=== PATIENT | female | born 1945 | race Caucasian/White ===

== ENCOUNTER 2018-06-10 17:59 | Inpatient (IN) | payer OTHER ==
[~2018-06-10] VITALS: Ht 152.4 cm; Wt 63.0 kg
[2018-06-10 18:08] VITALS: BP 131/69
--- NOTE | 2018-06-10 18:26 | NUR ---
Patient ambulated to bed 3. RN evaluating patient at bedside.
[2018-06-10] MEDS ORDERED: ACETAMINOPHEN EXTRA STRENGTH 500 MG TAB PO ONE (18:30)
--- NOTE | 2018-06-10 18:30 | NUR ---
PT IS A 73 Y/O FEMALE WHO PRESENTS TO THE ED C/O FEVER. PER DAUGHTER PT HAS BEEN REPORTING SYMPTOMS X1 WEEK. PT REPORTS 8/10 ACHING EPIGASTRIC PAIN AND HEADACHE THAT DOES NOT RADIATE. PT ALSO REPORTS FEVER, GEN WEAKNESS. PT DENIES CP, SOB, REPORTS N/V/D. PT AWAKE AND ALERT, RR EVEN/UNLABORED. PT REPOSITIONED FOR COMFORT, BED IN LOWEST POSITION. ER PROVIDER NOTIFIED. WILL CONTINUE TO MONITOR. MED HX: DM, HTN, HIGH CHOLESTEROL MED:GLUCOPHAGE,GLIPIZIDE,PRVASTATIN, LOSARTAN,LANTUS
[2018-06-10 19:45] LABS: BASOPHILS % (AUTO) 0.1 % (0.0-2.0); EOSINOPHILS % (AUTO) 0.1 % (0.0-4.0); HEMATOCRIT 33.7 % (36-48); HEMOGLOBIN 11.3 g/dL (12.0-16.0); LYMPHOCYTES # (AUTO) 0.5 K/uL (2.5-16.5); LYMPHOCYTES % (AUTO) 3.6 % (20.5-51.1); MEAN CORPUSCULAR HEMOGLOBIN 31 pg (27-31); MEAN CORPUSCULAR HGB CONC 33 g/dL (33-37); MEAN CORPUSCULAR VOLUME 91.8 fL (80-94); MONOCYTES # (AUTO) 1.1 K/uL (0.8-1.0); MONOCYTES % (AUTO) 7.2 % (1.7-9.3); NEUTROPHILS # (AUTO) 13.2 K/uL (1.8-7.7); PLATELET COUNT (AUTO) 201 K/uL (140-450); RED BLOOD CELL COUNT(AUTO) 3.67 MIL/uL (4.20-5.40); RED CELL DISTRIBUTION WIDTH 12.9 % (11.6-13.7); WHITE BLOOD COUNT (AUTO) 14.8 K/uL (4.8-10.8)
[2018-06-10 19:55] LABS: ANION GAP 17.1 (8-16); CARBON DIOXIDE 18.4 mmol/L (21-32); CHLORIDE 102 mmol/L (98-107); GLUCOSE 296 mg/dL (74-106); POTASSIUM 4.5 mmol/L (3.5-5.1); SODIUM SERUM 133 mmol/L (136-145); UREA NITROGEN, BLOOD 32 mg/dL (7-18)
[2018-06-10 19:55] LABS: APPEARANCE,URINE HAZY (CLEAR); BILIRUBIN,URINE NEGATIVE (NEGATIVE); BLOOD, URINE 2+ (NEGATIVE); COLOR,URINE YELLOW (YELLOW); LEUKOCYTE ESTERASE ,URINE 1+ (NEGATIVE); NITRITE, URINE NEGATIVE (NEGATIVE); UGLUCOSE 1+ (NEGATIVE)
[2018-06-10 20:01] LABS: ALBUMIN 2.7 g/dL (3.4-5.0); ASPARTATE AMINOTRANSFERASE 18 U/L (15-37); TOTAL BILIRUBIN 0.3 mg/dL (0.0-1.0)
[2018-06-10 20:03] LABS: RBC,URINE 11-20 (MOD) /HPF (0-5); WBC,URINE >25 (MANY) /HPF (0-5)
[2018-06-10] MEDS ORDERED: NACL 0.9% 2,000 ML IV ONE (20:10)
[2018-06-10] MEDS ORDERED: cefTRIAXone 1,000 MG VIAL ONE (20:21)
--- NOTE | 2018-06-10 20:36 | NUR ---
MEDICATED ORDERED. NO ADVERSE REACTIONS AT THIS TIME.
[2018-06-10] MEDS ORDERED: GLIP10TA3 PO (20:39)
[2018-06-10] MEDS ORDERED: PRAV40TA1 PO (20:39)
[2018-06-10] MEDS ORDERED: LANTUS SUBQ (20:39)
[2018-06-10] MEDS ORDERED: LOSA50TA66 PO (20:39)
[2018-06-10] MEDS ORDERED: METF500T PO (20:39)
[2018-06-10] MEDS ORDERED: HYDROcodone/APAP 5/325 MG 1 TAB TAB PO PRN (20:40)
[2018-06-10] MEDS ORDERED: ONDANSETRON 4 MG/2 ML VIAL IM/IVP PRN (20:40)
[2018-06-10] MEDS ORDERED: DEXTROSE 50% 50 ML SYR IVP PRN (20:40)
[2018-06-10] MEDS ORDERED: DOCUSATE SODIUM 100 MG GELCAP PO PRN (20:40)
[2018-06-10] MEDS ORDERED: ACETAMINOPHEN 325 MG TAB PO PRN (20:40)
[2018-06-10] MEDS ORDERED: MORPHINE SULFATE 2 MG/ML SYR IVP PRN (20:40)
[2018-06-10] MEDS ORDERED: LORazepam 2 MG/ML VIAL IM/IVP PRN (20:40)
[2018-06-10] MEDS: ATORVASTATIN 20 MG TAB PO SCH (21:00)
--- NOTE | 2018-06-10 21:15 | NUR ---
RECEIVED PT FROM ER VIA [facility]. PT AWAKE, ALERT O X 4. PT AMBULATORY, AND ABLE TO TRANSFER TO BED W/ STANDBY ASSIST. PT GAIT STEADY. W/ IV ON THE RIGHT WRIST/HAND G 22 NS BOLUS ONGOING. DAUGHTER ACCOMPANYING PT. PLACED ON LOW BED, WITH BED ALARM.
--- NOTE | 2018-06-10 21:20 | NUR ---
Patient will be admitted to care of DR COSTA. Admited to 121-A. Will go to room TELE. Belongings list completed. Report to VASILIY ONEIL.
[2018-06-10 21:42] LABS: PROTHROMBIN TIME 9.8 secs (10.8-13.4)
[2018-06-10 21:50] LABS: CHOL/HDL RATIO 4.6 (1-4.5); MAGNESIUM 1.9 mg/dL (1.8-2.4); PHOSPHORUS 2.5 mg/dL (2.5-4.9); THYROID STIMULATING HORMONE 0.44 uIU/mL (0.34-3.74)
[2018-06-10] MEDS ORDERED: TAMSULOSIN 0.4 MG CAP PO SCH (22:00)
[2018-06-10] MEDS ORDERED: glipiZIDE 10 MG TAB PO SCH (22:00)
[2018-06-10] MEDS ORDERED: metFORMIN 500 MG TAB PO SCH (22:00)
--- NOTE | 2018-06-10 22:20 | NUR ---
DAUGHTER AT BEDSIDE ACTING TALENT ACQUISITION DIRECTOR FOR PT, ANSWERED QUESTIONS FOR H AND P, PTDOES WANT TO REST FOR NOW SHE SAID AND WOULD LIKE TO SLEEP 1ST.EXPLAINED TO PT AND DAUGHTER RISK AND BENEFITS MEDS STILL PENDING TO BE GIVEN TO PATIENT
[2018-06-11] VITALS: BP 119/60
[2018-06-11] MEDS: BLOOD GLUCOSE MONITORING 1 DEV DEV FS SCH ×5 (01:26→20:19)
[2018-06-11] MEDS: NACL 0.9% 1,000 ML IV SCH ×6 (01:27→21:37)
--- NOTE | 2018-06-11 01:30 | NUR ---
MEDICATED PATIENT WITH MEDS ORDERED
[2018-06-11] MEDS: INSULIN LANTUS 100 UNITS/ML 10 ML VIAL SUBQ SCH ×2 (01:31→20:33)
[2018-06-11] MEDS: INSULIN LISPRO SLIDING SCALE 100 UNITS/ML VIAL SUBQ PRN ×4 (01:38→20:36)
--- NOTE | 2018-06-11 01:39 | NUR ---
FINISHED IV BOLUS ON THE FROM ER JUST STARTED THE IVF AT 70ML/HR ORDERED
--- NOTE | 2018-06-11 01:39 | NUR ---
WILL LOOK FOR ATORVASTATIN MED OTHER PYXIS UNAVAILABLE AT TELE
[2018-06-11] MEDS: ATORVASTATIN 20 MG TAB PO SCH ×2 (01:53→20:31)
[2018-06-11 04:00] VITALS: BP 119/65
[2018-06-11] MEDS: glipiZIDE 10 MG TAB PO SCH ×2 (06:32→17:05)
--- NOTE | 2018-06-11 07:15 | NUR ---
ENDORSED FOR CONTINUITY OF CARE. PT IN STABLE CONDITION AT THIS TIME.
--- NOTE | 2018-06-11 07:17 | NUR ---
RECEIVED BEDSIDE REPORT FROM MICROSYSTEMS ENGINEER RN. PT SLEEPING IN BED, AROUSABLE BY VOICE. AOX4. DENIES PAIN AND DISCOMFORT. LUNGS CTA. ABD SOFT, LOWER ABD SLIGHTLY TENDER TO PALPATION. PT IS VOIDING ADEQUATELY. PER MICROSYSTEMS ENGINEER RN, PT IS AMBULATORY W/ STANDBY ASSIST. IV SITE PATENT AND ASYMPTOMATIC, INFUSING IVF PER MD ORDERS. ALL SAFETY PRECAUTIONS IN PLACE, WILL CONTINUE TO MONITOR.
[2018-06-11 08:00] VITALS: BP 106/55
[2018-06-11] MEDS ORDERED: metFORMIN 500 MG TAB PO SCH (08:00)
[2018-06-11] MEDS: metFORMIN 850 MG TAB PO SCH ×2 (08:28→17:05)
[2018-06-11] MEDS: TAMSULOSIN 0.4 MG CAP PO SCH (08:28)
[2018-06-11] MEDS ORDERED: SODIUM FERRIC GLUCONATE 125 MG in NACL 0.9% 100 ML IV SCH (09:00)
[2018-06-11 09:18] LABS: HEMATOCRIT 36.7 % (36-48); MEAN CORPUSCULAR HEMOGLOBIN 31 pg (27-31); MEAN CORPUSCULAR HGB CONC 33 g/dL (33-37); MEAN CORPUSCULAR VOLUME 93.3 fL (80-94); PLATELET COUNT (AUTO) 219 K/uL (140-450); RED BLOOD CELL COUNT(AUTO) 3.93 MIL/uL (4.20-5.40); RED CELL DISTRIBUTION WIDTH 13.1 % (11.6-13.7); WHITE BLOOD COUNT (AUTO) 16.4 K/uL (4.8-10.8)
--- NOTE | 2018-06-11 09:18 | NUR ---
NOTIFIED PHARMACY NO ROCEPHIN AVAILABLE IN PT CASSETTE. PHARMACY TO BRING TO UNIT.
[2018-06-11] MEDS: LACTOBACILLUS RHAMNOSUS GG 1 EACH CAP PO SCH (09:45)
[2018-06-11] MEDS: PETROLATUM WHITE 30 GM TUBE TP SCH ×2 (09:46→20:51)
[2018-06-11] MEDS: ASCORBIC ACID 500 MG TAB PO SCH (09:46)
[2018-06-11] MEDS: LOSARTAN 50 MG TAB PO SCH (09:46)
[2018-06-11 09:52] LABS: ANION GAP 16.3 (8-16); CARBON DIOXIDE 20.1 mmol/L (21-32); CHLORIDE 108 mmol/L (98-107); CREATININE 0.8 mg/dL (0.6-1.3); GLUCOSE 253 mg/dL (74-106); POTASSIUM 4.4 mmol/L (3.5-5.1); SODIUM SERUM 140 mmol/L (136-145); UREA NITROGEN, BLOOD 23 mg/dL (7-18)
[2018-06-11 09:54] LABS: MAGNESIUM 2.2 mg/dL (1.8-2.4); PHOSPHORUS 2.9 mg/dL (2.5-4.9)
[2018-06-11 10:04] LABS: CHOL/HDL RATIO 4.2 (1-4.5)
[2018-06-11 10:30] LABS: BASOPHILS % (MANUAL) 0 % (0-2); EOSINOPHILS % (MANUAL) 0 % (0-4); LYMPHOCYTES % (MANUAL) 9 % (20-46); MONOCYTES % (MANUAL) 5 % (5-12)
--- NOTE | 2018-06-11 11:06 | NUR ---
INFORMED DR. NAJERA THAT PT'S HR GOES DOWN TO 48 BMP PER MONITOR TEACH. PT IS ASYMPTOMATIC.
[2018-06-11 12:00] VITALS: BP 114/55
--- NOTE | 2018-06-11 13:45 | NUR ---
PATIENT HAS BEEN SCREENED AND CATEGORIZED MODERATE NUTRITION RISK. PATIENT WILL BE SEEN WITHIN 3-5 DAYS OF ADMISSION. 06/13/18 - 06/15/18 SANDRA EDWARDS MBA, RD
[2018-06-11 16:00] VITALS: BP 125/56
--- NOTE | 2018-06-11 16:15 | NUR ---
STRAINED URINE X1. NO STONES. STRAIN URINE SIGN POSTED ON DOOR.
[2018-06-11] MEDS: FERROUS SULFATE 325 MG TABEC PO SCH (17:06)
[2018-06-11] MEDS ORDERED: LEVOFLOXACIN 750 MG/D5W PREMIX 150 ML IV SCH (18:00)
--- NOTE | 2018-06-11 19:28 | NUR ---
ENDORSED POC TO RACING SECRETARY RN. PT IN STABLE CONDITION. ENDORSED TO STRAIN ALL URINE FOR STONES.
--- NOTE | 2018-06-11 19:29 | NUR ---
RECEIVED PT ON BED AWAKE ALERT O X 4. PT WITH IV ON THE R HAND G 22 AT NS 50 ML/HR. PT AMBULATORY. PT NOT IN RESPIRATORY DISTRESS. POC REVIEWED. WILL CONTINUE TO MONITOR
--- NOTE | 2018-06-11 19:30 | NUR ---
BS 245 MG/DL GIVEN INSULIN ORDERED
[2018-06-11 20:00] VITALS: BP 128/46
--- NOTE | 2018-06-11 21:00 | NUR ---
CLARIFIED W/ DR. MUÑIZ IF I COULD GIVE ATORVASTATIN HS TONIGHT SINCE THERE IS UNDOCUMENTED TIME IN THE [facility] FOR THAT MED.DR. MUÑIZ ACKNOWLEDGED TO GIVE IT AT HS.
[2018-06-12] VITALS: BP 120/50
[2018-06-12] MEDS: NACL 0.9% 1,000 ML IV SCH ×6 (02:37→20:32)
[2018-06-12 04:00] VITALS: BP 122/55
[2018-06-12] MEDS: BLOOD GLUCOSE MONITORING 1 DEV DEV FS SCH ×4 (05:31→21:06)
[2018-06-12] MEDS: INSULIN LISPRO SLIDING SCALE 100 UNITS/ML VIAL SUBQ PRN ×4 (06:01→21:08)
--- NOTE | 2018-06-12 07:25 | NUR ---
ENDORSED TO AM SHIFT FOR CONTINUITY OF CARE.PT IN STABLE CONDITION AT THIS TIME
--- NOTE | 2018-06-12 07:26 | NUR ---
RECEIVED REPORT FROM FLEET ADMINISTRATOR NURSE CLARICE AT BEDSIDE. PT IN STABLE CONDITION. RESPIRATIONS EVEN AND UNLABORED. ROOM AIR. IV INTACT AND PATENT. SAFETY MEASURES IN PLACE. BED IN LOW POSITION. CALL LIGHT AT BEDSIDE. FAMILY MEMBER AT BEDSIDE. WILL CONTINUE TO MONITOR.
--- NOTE | 2018-06-12 07:30 | NUR ---
GIVEN GLIPIZIDE AT 0730, BUT THE [employer] COMPUTER DID NOT REGISTER IT. MANUALLY PUT IT IN.
[2018-06-12] MEDS: glipiZIDE 10 MG TAB PO SCH ×2 (07:49→16:54)
[2018-06-12 08:00] VITALS: BP 144/54
[2018-06-12 08:42] LABS: ANION GAP 16.1 (8-16); CHLORIDE 105 mmol/L (98-107); CREATININE 0.7 mg/dL (0.6-1.3); GLUCOSE 172 mg/dL (74-106); MAGNESIUM 1.7 mg/dL (1.8-2.4); PHOSPHORUS 1.8 mg/dL (2.5-4.9); POTASSIUM 4.1 mmol/L (3.5-5.1); SODIUM SERUM 135 mmol/L (136-145); UREA NITROGEN, BLOOD 17 mg/dL (7-18)
[2018-06-12 08:44] LABS: BASOPHILS % (AUTO) 0.1 % (0.0-2.0); EOSINOPHILS % (AUTO) 0.3 % (0.0-4.0); HEMOGLOBIN 10.7 g/dL (12.0-16.0); LYMPHOCYTES # (AUTO) 2.4 K/uL (2.5-16.5); LYMPHOCYTES % (AUTO) 16.6 % (20.5-51.1); MEAN CORPUSCULAR HEMOGLOBIN 31 pg (27-31); MEAN CORPUSCULAR HGB CONC 34 g/dL (33-37); MEAN CORPUSCULAR VOLUME 92.1 fL (80-94); MONOCYTES # (AUTO) 1.4 K/uL (0.8-1.0); MONOCYTES % (AUTO) 9.3 % (1.7-9.3); NEUTROPHILS # (AUTO) 10.8 K/uL (1.8-7.7); NEUTROPHILS % (AUTO) 73.7 % (42.2-75.2); PLATELET COUNT (AUTO) 198 K/uL (140-450); RED BLOOD CELL COUNT(AUTO) 3.48 MIL/uL (4.20-5.40); RED CELL DISTRIBUTION WIDTH 13.1 % (11.6-13.7); WHITE BLOOD COUNT (AUTO) 14.6 K/uL (4.8-10.8)
[2018-06-12] MEDS: LOSARTAN 50 MG TAB PO SCH (08:57)
[2018-06-12] MEDS: metFORMIN 850 MG TAB PO SCH ×2 (08:57→17:55)
[2018-06-12] MEDS: LACTOBACILLUS RHAMNOSUS GG 1 EACH CAP PO SCH (08:57)
[2018-06-12] MEDS: ASCORBIC ACID 500 MG TAB PO SCH (08:58)
[2018-06-12] MEDS: FERROUS SULFATE 325 MG TABEC PO SCH ×2 (08:58→17:55)
[2018-06-12] MEDS: TAMSULOSIN 0.4 MG CAP PO SCH (08:58)
[2018-06-12] MEDS: PETROLATUM WHITE 30 GM TUBE TP SCH ×2 (09:01→21:13)
[2018-06-12] MEDS ORDERED: KETOROLAC 15 MG/ML VIAL IVP PRN ×2 (10:00→17:15)
[2018-06-12] MEDS ORDERED: MAG SULF 2000 MG/WATER PREMIX 50 ML IV SCH (10:00)
[2018-06-12] MEDS: SODIUM PHOS / POTASSIUM PHOS 1 PKT PDR PO SCH (11:04)
[2018-06-12 12:00] VITALS: BP 142/49
[2018-06-12 13:38] LABS: T4 (THYROXINE) 6.5 ug/dL (4.5-12.0)
[2018-06-12 16:00] VITALS: BP 136/52
--- NOTE | 2018-06-12 19:33 | NUR ---
GAVE REPORT TO ENVIRONMENTAL SYSTEMS COORDINATOR NURSE GERMAINE FOR CONTINUITY OF CARE. PT IN STABLE CONDITION.
--- NOTE | 2018-06-12 19:34 | NUR ---
RECEIVED PT FROM DIANA RN PT BELARUSIAN SPEAKER AAOX4 AMBULATORY IV ON RT WRIST INFUSING WELL ON TELEMETRY SR RELATIVES AT BED SIDE INITIAL ASSESSMENT DONE
[2018-06-12 20:00] VITALS: BP 116/60
[2018-06-12] MEDS: ATORVASTATIN 20 MG TAB PO SCH (21:06)
[2018-06-12] MEDS: INSULIN LANTUS 100 UNITS/ML 10 ML VIAL SUBQ SCH (21:15)
--- NOTE | 2018-06-12 21:30 | NUR ---
BLOOD SUGAR TEST 159 COVERAGE WITH HUMALOG SUBQ 2 UNITS FOLLOWING PROTOCOL
--- NOTE | 2018-06-12 21:55 | NUR ---
PT VOIDING WELL NOT STONES SEEN ON STRAIN URINE
[2018-06-13] VITALS: BP 124/49
--- NOTE | 2018-06-13 | NUR ---
PT SLEEPING WELL ON TELEMETRY SR NOT DISTRESS NOTED IV ON RT WRIST INFUSING WELL
[2018-06-13] MEDS: NACL 0.9% 1,000 ML IV SCH ×5 (01:40→22:17)
--- NOTE | 2018-06-13 03:00 | NUR ---
PT HAS BEEN MONITORING CLOSE STAINING URINE NOT STONE SEEN YET
[2018-06-13 04:00] VITALS: BP 118/49
[2018-06-13] MEDS: BLOOD GLUCOSE MONITORING 1 DEV DEV FS SCH ×4 (05:53→21:00)
[2018-06-13] MEDS: glipiZIDE 10 MG TAB PO SCH ×2 (05:54→17:06)
--- NOTE | 2018-06-13 06:00 | NUR ---
BLOOD SUGAR TEST 143 NOT COVERAGE, PT ON TELE SR NOT DISTRESS NOTED VOIDING WELL STRAINING URINE
--- NOTE | 2018-06-13 06:38 | NUR ---
PT WILL BE ENDORSED TO DAY SHIFT NURSE FOR CONTINUITY OF CARE
[2018-06-13 06:47] LABS: ANION GAP 12.6 (8-16); CARBON DIOXIDE 20.6 mmol/L (21-32); CHLORIDE 111 mmol/L (98-107); CREATININE 0.6 mg/dL (0.6-1.3); GLUCOSE 165 mg/dL (74-106); POTASSIUM 4.2 mmol/L (3.5-5.1); SODIUM SERUM 140 mmol/L (136-145); UREA NITROGEN, BLOOD 13 mg/dL (7-18)
[2018-06-13 06:54] LABS: MAGNESIUM 1.6 mg/dL (1.8-2.4); PHOSPHORUS 2.6 mg/dL (2.5-4.9)
--- NOTE | 2018-06-13 07:15 | NUR ---
Received report from pm nurse Sharon. Pt sitting up in bed, awake, no signs of distress. R hand IV intact with ongoing NS @ 200ml/hr. Instructed pt to urinate in hat & notify nurse to strain all urine. Pt verbalized understanding. Call light within reach.
[2018-06-13 07:39] LABS: BASOPHILS % (AUTO) 0.2 % (0.0-2.0); EOSINOPHILS # (AUTO) 0.2 K/uL (0-0.4); EOSINOPHILS % (AUTO) 1.3 % (0.0-4.0); HEMATOCRIT 30.2 % (36-48); LYMPHOCYTES # (AUTO) 2.7 K/uL (2.5-16.5); LYMPHOCYTES % (AUTO) 22.3 % (20.5-51.1); MEAN CORPUSCULAR HEMOGLOBIN 31 pg (27-31); MEAN CORPUSCULAR HGB CONC 33 g/dL (33-37); MEAN CORPUSCULAR VOLUME 93.4 fL (80-94); MONOCYTES # (AUTO) 1.1 K/uL (0.8-1.0); MONOCYTES % (AUTO) 9.6 % (1.7-9.3); NEUTROPHILS # (AUTO) 7.9 K/uL (1.8-7.7); NEUTROPHILS % (AUTO) 66.6 % (42.2-75.2); PLATELET COUNT (AUTO) 188 K/uL (140-450); RED BLOOD CELL COUNT(AUTO) 3.23 MIL/uL (4.20-5.40); RED CELL DISTRIBUTION WIDTH 12.9 % (11.6-13.7); WHITE BLOOD COUNT (AUTO) 11.9 K/uL (4.8-10.8)
[2018-06-13 08:00] VITALS: BP 126/57
[2018-06-13] MEDS: LOSARTAN 50 MG TAB PO SCH (08:43)
[2018-06-13] MEDS: metFORMIN 850 MG TAB PO SCH ×2 (08:43→17:06)
[2018-06-13] MEDS: FERROUS SULFATE 325 MG TABEC PO SCH ×2 (08:44→17:06)
[2018-06-13] MEDS: LACTOBACILLUS RHAMNOSUS GG 1 EACH CAP PO SCH (08:44)
[2018-06-13] MEDS: SODIUM PHOS / POTASSIUM PHOS 1 PKT PDR PO SCH (08:44)
[2018-06-13] MEDS: ASCORBIC ACID 500 MG TAB PO SCH (08:44)
[2018-06-13] MEDS: TAMSULOSIN 0.4 MG CAP PO SCH (08:44)
[2018-06-13] MEDS: PETROLATUM WHITE 30 GM TUBE TP SCH ×2 (08:53→22:00)
--- NOTE | 2018-06-13 10:00 | NUR ---
Asked pt if she had urinated. Pt states she already flushed it down. Reinstructed to urinate in hat & notify nurse to strain urine. Pt verbalized understanding, return demonstrate proper use of call light. Hat & strain in toilet.
[2018-06-13] MEDS: MAG SULF 2000 MG/WATER PREMIX 50 ML IV SCH ×2 (10:03→11:57)
[2018-06-13] MEDS: INSULIN LISPRO SLIDING SCALE 100 UNITS/ML VIAL SUBQ PRN ×2 (11:58→17:16)
[2018-06-13 16:00] VITALS: BP 122/51
--- NOTE | 2018-06-13 16:30 | NUR ---
Pt transferred to room 118 for isolation. Pt verbalized understanding.
--- NOTE | 2018-06-13 19:20 | NUR ---
Report given to pm nurse Miryam. Pt sitting up in bed, family at bedside. No signs of distress. Call light within reach.
[2018-06-13 20:00] VITALS: BP 142/68
--- NOTE | 2018-06-13 20:00 | NUR ---
SEEN PT AWAKE, ALERT AND ORIENTEDX4. LITHUANIAN SPEAKING ONLY. FAMILY AT BEDSIDE. INITIAL ASSESSMENT DONE. VITAL SIGNS CHECKED. PT DENIES ANY PAIN OR DISCOMFORT. PT ON ISOLATION PRECAUTION. SAFETY ENSURED. CALL LIGHT W/IN REACH.
[2018-06-13] MEDS ORDERED: MEROPENEM 500 MG in NACL 0.9% 50 ML IV SCH ×4 (21:00)
[2018-06-13] MEDS: ATORVASTATIN 20 MG TAB PO SCH (22:01)
[2018-06-13] MEDS ORDERED: MEROPENEM 500 MG VIAL IV ONE (22:04)
[2018-06-13] MEDS: INSULIN LANTUS 100 UNITS/ML 10 ML VIAL SUBQ SCH (22:06)
--- NOTE | 2018-06-13 22:10 | NUR ---
PT ASLEEP BUT EASILY AROUSABLE. MEDICATIONS GIVEN W/ TEACHINGS. PT VERBALIZED UNDERSTANDING. SNACKS PROVIDED. PT DENIES ANY OTHER NEEDS. CALL LIGHT W/IN REACH.
[2018-06-13] MEDS: MEROPENEM 500 MG in NACL 0.9% 50 ML IV SCH (22:11)
--- NOTE | 2018-06-14 00:05 | NUR ---
SEEN PT SLEEPING COMFORTABLY. IVF INFUSING WELL. CALL LIGHT W/IN REACH.
--- NOTE | 2018-06-14 02:15 | NUR ---
SEEN PT ASLEEP. IVF INFUSING WELL. CALL LIGHT W/IN REACH. BED ALARM ON.
[2018-06-14 04:10] VITALS: BP 128/56
--- NOTE | 2018-06-14 04:15 | NUR ---
SEEN PT ASLEEP. VITAL SIGNS CHECKED. PT DENIES ANY PAIN OR DISCOMFORT. IVF BAG CHANGED. CALL LIGHT W/IN REACH.
[2018-06-14] MEDS: NACL 0.9% 1,000 ML IV SCH ×4 (04:30→22:03)
--- NOTE | 2018-06-14 06:45 | NUR ---
AWAKEN PT. BLOOD SUGAR CHECKED:153. WILL COVER W/ INSULIN PER SLIDING SCALE. PO MEDICATION GIVEN W/ TEACHINGS. PT VERBALIZED UNDERSTANDING.
[2018-06-14] MEDS: BLOOD GLUCOSE MONITORING 1 DEV DEV FS SCH ×4 (06:46→21:45)
[2018-06-14] MEDS: glipiZIDE 10 MG TAB PO SCH ×2 (06:47→16:14)
[2018-06-14] MEDS: INSULIN LISPRO SLIDING SCALE 100 UNITS/ML VIAL SUBQ PRN ×2 (06:50→21:47)
--- NOTE | 2018-06-14 07:05 | NUR ---
WILL ENDORSE CARE TO DAYSHIFT NURSE.
--- NOTE | 2018-06-14 07:06 | NUR ---
RECEIVED BED SIDE REPORT FROM PROJ ENGINEER RN, PT AWAKE AND ALERT, PLEASANT, IN NO PAIN, ON RA IN NO RESPIRATORY DISTRESS, SKIN INTACT, IV L HAND 20G NS RUNNING AT 200ML/HR, ON CONTACT PRECAUTIONS, SIGN POSTED OUTSIDE, CALL LIGHT WITHIN REACH, WILL CONTINUE TO MONITOR
--- NOTE | 2018-06-14 08:00 | NUR ---
GAVE AM MEDS, PT TOLERATED WELL, IV ABX GIVEN, EMPTIED HAT AND STONE NO YET PASSED, ONLY MUCUS SHOWN, BED LOW, CALL LIGHT WITHIN REACH, WILL CONTINUE TO MONITOR
[2018-06-14 08:14] LABS: BASOPHILS % (AUTO) 0.3 % (0.0-2.0); EOSINOPHILS # (AUTO) 0.2 K/uL (0-0.4); EOSINOPHILS % (AUTO) 2.2 % (0.0-4.0); HEMATOCRIT 30.5 % (36-48); HEMOGLOBIN 10.1 g/dL (12.0-16.0); LYMPHOCYTES # (AUTO) 2.1 K/uL (2.5-16.5); LYMPHOCYTES % (AUTO) 19.2 % (20.5-51.1); MEAN CORPUSCULAR HEMOGLOBIN 31 pg (27-31); MEAN CORPUSCULAR HGB CONC 33 g/dL (33-37); MEAN CORPUSCULAR VOLUME 93.1 fL (80-94); MONOCYTES % (AUTO) 9.4 % (1.7-9.3); NEUTROPHILS # (AUTO) 7.6 K/uL (1.8-7.7); NEUTROPHILS % (AUTO) 68.9 % (42.2-75.2); PLATELET COUNT (AUTO) 207 K/uL (140-450); RED BLOOD CELL COUNT(AUTO) 3.28 MIL/uL (4.20-5.40); RED CELL DISTRIBUTION WIDTH 13.1 % (11.6-13.7)
[2018-06-14] MEDS: TAMSULOSIN 0.4 MG CAP PO SCH (08:18)
[2018-06-14] MEDS: FERROUS SULFATE 325 MG TABEC PO SCH ×2 (08:18→16:08)
[2018-06-14] MEDS: metFORMIN 850 MG TAB PO SCH ×2 (08:19→16:14)
[2018-06-14] MEDS: LACTOBACILLUS RHAMNOSUS GG 1 EACH CAP PO SCH (08:19)
[2018-06-14] MEDS: SODIUM PHOS / POTASSIUM PHOS 1 PKT PDR PO SCH (08:19)
[2018-06-14] MEDS: ASCORBIC ACID 500 MG TAB PO SCH (08:19)
[2018-06-14] MEDS: LOSARTAN 50 MG TAB PO SCH (08:19)
[2018-06-14] MEDS ORDERED: MEROPENEM 500 MG VIAL IV ONE (08:20)
[2018-06-14] MEDS: MEROPENEM 500 MG in NACL 0.9% 50 ML IV SCH ×2 (08:20→21:37)
[2018-06-14 08:34] LABS: ANION GAP 11.8 (8-16); CARBON DIOXIDE 20.2 mmol/L (21-32); CHLORIDE 108 mmol/L (98-107); CREATININE 0.6 mg/dL (0.6-1.3); GLUCOSE 148 mg/dL (74-106); SODIUM SERUM 136 mmol/L (136-145); UREA NITROGEN, BLOOD 10 mg/dL (7-18)
[2018-06-14 08:48] LABS: MAGNESIUM 1.8 mg/dL (1.8-2.4); PHOSPHORUS 2.8 mg/dL (2.5-4.9)
[2018-06-14] MEDS ORDERED: MEROPENEM 500 MG in NACL 0.9% 50 ML IV SCH (09:00)
[2018-06-14] MEDS ORDERED: METF500T PO (10:02)
[2018-06-14] MEDS ORDERED: MERO500P7 IV (10:25)
[2018-06-14] MEDS ORDERED: ASCO1CAP75 PO (10:25)
--- NOTE | 2018-06-14 11:06 | NUR ---
06/14/18 RD INITIAL ASSESSMENT COMPLETED PLEASE REFER TO NUTRITION ASSESSMENT UNDER CARE ACTIVITY FOR ESTIMATED NUTRITIONAL NEEDS. 1. CONTINUE CCHO 60 GM DIET TOLERATED 2. RD PROVIDED NUTRITION EDUCATION ON DIABETES. PT ACCEPTED 3. RD TO FOLLOW-UP 5-7 DAYS, LOW RISK ELIZABETH SAUCEDA RD
[2018-06-14] MEDS: PETROLATUM WHITE 30 GM TUBE TP SCH ×2 (11:26→21:43)
[2018-06-14] MEDS ORDERED: ASCO-5 PO (12:02)
[2018-06-14] MEDS ORDERED: FERR324T11 PO (12:02)
--- NOTE | 2018-06-14 13:29 | NUR ---
PT'S FAMILY AT BEDSIDE, PT SEEN EATING LUNCH, IN NO SIGN OF DISTRESS OR PAIN, CALL LIGHT WITHIN REACH, BED LOW, WILL CONTINUE TO MONITOR
--- NOTE | 2018-06-14 14:27 | NUR ---
CALLED [facility] INSURANCE FOR SNF AUTHORIZATION SPOKE WITH TRIPP , GAVE ME 3 SNF TO TRY [facility] [phone] ,[facility] [phone] , [facility] [phone] WILL FAX ALL THE INFORMATION
--- NOTE | 2018-06-14 14:48 | NUR ---
FAXED ALL THE PAPER WORK TO [facility] , FOR HALLE PEREZ SPOKE WITH MADELEINE DAVILA [phone] AND SPOKE WITH ARMIDA AUGUSTINEITTING [phone] AT [facility] FAX [phone]
--- NOTE | 2018-06-14 15:27 | NUR ---
PT RESTING COMFORTABLY WITH FAMILY AT BED SIDE, CALL LIGHT WITHIN REACH, BED LOW, WILL CONTINUE TO MONITOR
--- NOTE | 2018-06-14 15:30 | NUR ---
SPOKE WITH [facility] [phone] FROM [facility] THERE IS NO ISO BED
[2018-06-14 16:00] VITALS: BP 140/62
--- NOTE | 2018-06-14 16:19 | NUR ---
GAVE PT AFTERNOON MEDS, HELD METFORMIN AND GLIPIZIDE, SUGAR 82, GAVE ORANGE JUICE, WILL RECHECK SUGAR AGAIN. PT ABOUT TO GET BED BATH, DAUGHTER AT BEDSIDE
--- NOTE | 2018-06-14 19:15 | NUR ---
GAVE BED SIDE REPORT TO COIL MACHINE SUPERVISOR RN, PT AWAKE AND ALERT, ON RA, IN NO RESPIRATORY DISTRESS, IN NO PAIN, BED LOW, CALL LIGHT WITHIN REACH
--- NOTE | 2018-06-14 20:29 | NUR ---
GOT REPORT FROM ANOTHER NOC NURSE, PATIENT WIFEDE BE HANDED TO ME PER CHARGE NURSE. PATIENT A A, O X 4. BULGARIAN SPEAKING BUT ABLE TO UNDERSTAND [place] AND EXPRESS LITLE [place]. PATIENT PLACED ON FALL RISK BUT ABLE TO AMBULATE W/ STANDBY ASSIST W/ L HAND G 22 NS AT 200 ML, INFUSING WELL.BED ALARM ON, POC REVIEWED. WILL CONTINUE TO MONITOR
[2018-06-14] MEDS: ATORVASTATIN 20 MG TAB PO SCH (21:37)
--- NOTE | 2018-06-14 21:39 | NUR ---
MEDS ADMINISTERED PT TOLERATED WELL
[2018-06-14] MEDS: INSULIN LANTUS 100 UNITS/ML 10 ML VIAL SUBQ SCH (21:42)
--- NOTE | 2018-06-14 21:45 | NUR ---
BS IS 170 MG/DL. GIVEN THE LANTUS AND HUMALOG ORDERED.
[2018-06-15] VITALS: BP 128/53
--- NOTE | 2018-06-15 02:07 | NUR ---
PT SLEEPING NO COMPLAINTS AT THIS TIME. PT IN STABLE CONDITION
--- NOTE | 2018-06-15 03:14 | NUR ---
PT WENT TO THE BATHROOM W/ AMBULATORY STANDBY ASSIST
[2018-06-15] MEDS: NACL 0.9% 1,000 ML IV SCH ×3 (04:46→09:40)
--- NOTE | 2018-06-15 04:46 | NUR ---
CHANGED IVF CONSUMED PREVIOUS ONE. PT WENT TO THE BATHROOM, LARGE AMOUNT OF YELLOW URINE. NO SEDIMENTS WHEN URINE STRAINED
[2018-06-15] MEDS: BLOOD GLUCOSE MONITORING 1 DEV DEV FS SCH ×3 (05:51→16:43)
[2018-06-15] MEDS: glipiZIDE 10 MG TAB PO SCH ×2 (06:40→16:03)
[2018-06-15 06:46] LABS: ANION GAP 14.2 (8-16); CARBON DIOXIDE 19.9 mmol/L (21-32); CHLORIDE 112 mmol/L (98-107); CREATININE 0.6 mg/dL (0.6-1.3); GLUCOSE 141 mg/dL (74-106); POTASSIUM 4.1 mmol/L (3.5-5.1); SODIUM SERUM 142 mmol/L (136-145); UREA NITROGEN, BLOOD 10 mg/dL (7-18)
--- NOTE | 2018-06-15 06:46 | NUR ---
PT AWAKE, ALERT O X 4, LYING IN BED, EASILY AROUSABLE BY NAME. PT IN SATBLE CONDITION WILL ENDORSE TO NEXT SHIFT FOR CONTINUITY OF CARE.
[2018-06-15 06:51] LABS: MAGNESIUM 1.4 mg/dL (1.8-2.4)
--- NOTE | 2018-06-15 07:20 | NUR ---
RECEIVED BED SIDE REPORT FROM BARIATRIC SURGEON RN, PT AWAKE AND ALERT, OX4. DENIES PAIN, ON RA IN NO RESPIRATORY DISTRESS, SKIN INTACT, IV L HAND 22G, NS RUNNING AT 200ML/HR, PATENT AND ASYMPTOMATIC. LUNG SOUNDS CLEAR. ON CONTACT PRECAUTIONS FOR URINE ESBL, SIGN POSTED OUTSIDE, CALL LIGHT WITHIN REACH, WILL CONTINUE TO MONITOR
[2018-06-15 07:23] LABS: BASOPHILS % (AUTO) 0.3 % (0.0-2.0); EOSINOPHILS # (AUTO) 0.2 K/uL (0-0.4); EOSINOPHILS % (AUTO) 2.5 % (0.0-4.0); HEMATOCRIT 29.9 % (36-48); LYMPHOCYTES # (AUTO) 2.6 K/uL (2.5-16.5); LYMPHOCYTES % (AUTO) 27.4 % (20.5-51.1); MEAN CORPUSCULAR HEMOGLOBIN 31 pg (27-31); MEAN CORPUSCULAR HGB CONC 33 g/dL (33-37); MEAN CORPUSCULAR VOLUME 93.5 fL (80-94); MONOCYTES % (AUTO) 10.2 % (1.7-9.3); NEUTROPHILS # (AUTO) 5.7 K/uL (1.8-7.7); NEUTROPHILS % (AUTO) 59.6 % (42.2-75.2); PLATELET COUNT (AUTO) 213 K/uL (140-450); WHITE BLOOD COUNT (AUTO) 9.6 K/uL (4.8-10.8)
[2018-06-15 08:00] VITALS: BP 126/74
--- NOTE | 2018-06-15 09:20 | NUR ---
REPORTED TO DR SUE MG 1.4, WILL PUT IN ORDERS.
[2018-06-15] MEDS: MEROPENEM 500 MG in NACL 0.9% 50 ML IV SCH (09:38)
[2018-06-15] MEDS: LACTOBACILLUS RHAMNOSUS GG 1 EACH CAP PO SCH (09:40)
[2018-06-15] MEDS: metFORMIN 850 MG TAB PO SCH ×2 (09:40→16:04)
[2018-06-15] MEDS: LOSARTAN 50 MG TAB PO SCH (09:42)
[2018-06-15] MEDS: ASCORBIC ACID 500 MG TAB PO SCH (09:42)
[2018-06-15] MEDS: FERROUS SULFATE 325 MG TABEC PO SCH ×2 (09:42→16:03)
[2018-06-15] MEDS: TAMSULOSIN 0.4 MG CAP PO SCH (09:43)
[2018-06-15] MEDS: PETROLATUM WHITE 30 GM TUBE TP SCH (09:43)
[2018-06-15] MEDS: MAG SULF 2000 MG/WATER PREMIX 50 ML IV SCH ×2 (10:54→12:57)
--- NOTE | 2018-06-15 12:00 | NUR ---
CHECKED PT'S BLOOD SUGAR BEFORE LUNCH. BG 198, WILL GIVE HUMALOG PER SLIDING SCALE.
[2018-06-15] MEDS: INSULIN LISPRO SLIDING SCALE 100 UNITS/ML VIAL SUBQ PRN (12:17)
[2018-06-15] MEDS ORDERED: INV1I IV (13:40)
--- NOTE | 2018-06-15 14:13 | NUR ---
SPOKE WITH PT'S DAUGHTER VIVEK [phone], DISCUSSED PLAN FOR HOME HEALTH FOR IV ANTIBIOTICS, VIVEK STATES PATIENT LIVES ALONE AT HOME, SHE WANTS THE PATIENT TO STAY WITH ANOTHER FAMILY MEMBER IF SHE CAN'T GO TO A SNF, VIVEK WILL CALL BACK WHEN SHE FINDS OUT WHERE PATIENT WILL BE STAYING.
--- NOTE | 2018-06-15 14:36 | NUR ---
FAXED THE NEW ORDER FOR HOME HEALTH FOR IV ABX WITH PERIPHERAL LINE TO [facility] [phone]
[2018-06-15 16:00] VITALS: BP 143/72
[2018-06-15] MEDS ORDERED: MEROPENEM 500 MG in NACL 0.9% 50 ML IV SCH (16:00)
[2018-06-15] MEDS ORDERED: PNEUMOCOCCAL VACCINE 23 MCG/0.5 ML VIAL IMVAC SCH (16:00)
--- NOTE | 2018-06-15 16:00 | NUR ---
OFFERED BRAILLE DUPLICATING MACHINE OPERATOR PHONE, PT PREFERS HER DAUGHTER ALEX TO TRANSLATE. DISCHARGE INSTRUCTIONS AND MED TEACHING GIVEN. MADE PT AWARE HER RX HAS BEEN [facility]ENT [facility] [place]. HOME HEALTH WILL BE ARRANGED TO COME TO HER HOME TOMORROW FOR IV ABX. MADE PT AWARE OF HER DOCTOR'S APPT. PT AND HER DAUGHTER VERBALIZED UNDERSTANDING. DC PAPER SIGNED BY PT.
--- NOTE | 2018-06-15 16:00 | NUR ---
MADE PT AWARE THAT RX HAS BEEN SENT TO [facility] [address] IN [place].
--- NOTE | 2018-06-15 16:18 | NUR ---
CALLED [phone], SPOKE WITH DR RUBY, REPORTED MG 3.3, RECOMMENDED REPEAT MG LAB, DR RUBY SAID PT GOT 4G MG RIDER TODAY, 3.3 IS OK TO DISCHARGE.
--- NOTE | 2018-06-15 17:45 | NUR ---
PT'S DAUGHTER CAME TO TUMBLER DRIER OPERATOR PT. MERREM WAS ALREADY FINISHED. IV CATH SL, CAPPED, PT LEAVING WITH IV CATH FOR IV ABX AT HOME. PT DRESSED HERSELF. WHEELED PT TO LOBBY.
[2018-06-15 20:25] LABS: FOLIC ACID 9.8 ng/mL (>3.0)
== END 2018-06-15 17:45 | disposition home health service (06) | DRG 871 ==
LOC: MED 17:59 → MTU 20:45
PROVIDERS: ADMIT General Practice; ATTEND General Practice
PROC: 3E0234Z Introduction of Serum, Toxoid and Vaccine into Muscle, Percutaneous Approach (ICD-10-PCS; principal; 2018-06-15)
DX: A41.9 Sepsis, unspecified organism (principal); N17.0 Acute kidney failure with tubular necrosis; E43 Unspecified severe protein-calorie malnutrition; N13.6 Pyonephrosis; E87.1 Hypo-osmolality and hyponatremia; I10 Essential (primary) hypertension; E78.5 Hyperlipidemia, unspecified; D64.9 Anemia, unspecified; E11.65 Type 2 diabetes mellitus with hyperglycemia; E86.0 Dehydration; E83.42 Hypomagnesemia; E83.39 Other disorders of phosphorus metabolism; B96.20 Unspecified Escherichia coli [E. coli] as the cause of diseases classified elsewhere; Z71.3 Dietary counseling and surveillance; Z68.27 Body mass index [BMI] 27.0-27.9, adult; Z79.84 Long term (current) use of oral hypoglycemic drugs; Z79.4 Long term (current) use of insulin; Z79.899 Other long term (current) drug therapy; Z23 Encounter for immunization
CPT/HCPCS: 36415; 71045; 76770; 80048; 80053; 81001; 82150; 82607; 82728; 82746; 82948; 83036; 83540; 83605; 83690; 83735; 83880; 84100; 84134; 84436; 84443; 85025; 85045; 85610; 85730; 87040; 87081; 87086; 87186; 90732; 96365; 99285; J0696; J1644; J1815; J1956; J2185; J2916; J3475; J7030; J7060; Q0092

== ENCOUNTER 2018-12-23 20:22 | Emergency (ER) | payer OTHER ==
[~2018-12-23] VITALS: Ht 152.4 cm; Wt 63.5 kg
[~2018-12-23 20:22] MED LIST: ASCO-5 PO; ASCO1CAP75 PO; FERR324T11 PO; GLIP10TA3 PO; INV1I IV; LANTUS SUBQ; LOSA50TA66 PO; METF500T PO; PRAV40TA1 PO
[2018-12-23 20:33] VITALS: BP 142/90
--- NOTE | 2018-12-23 20:35 | NUR ---
TO LOBBY A/W BED AMBULATORY
--- NOTE | 2018-12-23 20:53 | NUR ---
PT AMBULATED TO BED 11
--- NOTE | 2018-12-23 21:30 | NUR ---
73 YO F BIB DAUGHTER PRESENTS TO ED C/O 09/23 THROBBING PAIN TO RIGHT FIRST DIGIT. LATERAL ASPECT OF THUMB APPEARS RED, SWOLLEN. IS WARM TO TOUCH. PT DENIES HANGNAIL, INSECT BITE OR CLIPPING NAILS. NO DRAINAGE NOTED AT THIS TIME. -- PT AWAKE, A/O X 4. CALM, COOPERATIVE. ANSWERS QUESTIONS WITHOUT DIFFICULTY IN CLEAR, FULL SENTENCES. BEHAVIOR AGE APPROPRIATE. -- SKIN PINK, WARM, DRY. BREATHING EVEN, UNLABORED. PMH-- DM, HTN
[2018-12-23] MEDS ORDERED: ceFAZolin 1,000 MG VIAL IM ONE (22:25)
[2018-12-23] MEDS ORDERED: WATER STERILE 10 ML MC ONE (22:37)
[2018-12-23 22:54] VITALS: BP 137/53
--- NOTE | 2018-12-23 22:54 | NUR ---
Patient discharged with v/s stable. Written and verbal after care instructions given and explained. Patient alert, oriented and verbalized understanding of instructions. Ambulatory with steady gait. All questions addressed prior to discharge. ID band removed. Patient advised to follow up with PMD. Rx of Keflex given. Patient educated on indication of medication including possible reaction and side effects. Opportunity to ask questions provided and answered. Discharged by Dr. Starr.
== END 2018-12-23 22:54 | disposition home or self-care (01) ==
LOC: MED 20:22
DX: L03.011 Cellulitis of right finger (principal); E11.9 Type 2 diabetes mellitus without complications; I10 Essential (primary) hypertension; E78.5 Hyperlipidemia, unspecified; Z98.890 Other specified postprocedural states; Z79.4 Long term (current) use of insulin; Z79.899 Other long term (current) drug therapy
CPT/HCPCS: 96372; 99283; J0690

== ENCOUNTER 2022-01-03 11:34 | Emergency (ER) | payer OTHER ==
[~2022-01-03] VITALS: Ht 162.6 cm; Wt 65.8 kg
[~2022-01-03 11:34] MED LIST changes: +METF-346 PO; -METF500T PO
[2022-01-03 11:49] VITALS: BP 183/74
[2022-01-03] MEDS ORDERED: LIDOCAINE MPF 1% 10 MG/ML VIAL INJ ONE (12:00)
[2022-01-03] MEDS ORDERED: BACITRACIN OINT 500 UNITS/GM PKT TP ONE (12:00)
[2022-01-03] MEDS ORDERED: RABIES VACCINE 2.5 IU VIAL IMVAC ONE (12:30)
--- NOTE | 2022-01-03 13:29 | NUR ---
NON ADHERENT X 1 APPLIED TO R PALM
--- NOTE | 2022-01-03 13:42 | NUR ---
76F PRESENTS TO ED WITH C/O OF DOG BITE TO RIGHT HAND THIS MORNING. PT REPORTS STANDING OUTSIDE WHEN A STRANGE DOG APPROACHED HER AND BIT HER RIGHT HAND. UPON ASSESSMENT, LACERATION NOTED TO RIGHT PALM. 3 STITCHES PLACED TO CLOSE THE WOUND BY RAFA NAJERA. PT DENIES LOSS OF SENSATION TO DIGITS, HAS FULL ROM UPON ASSESSMENT. PT DENIES TAKING MEDS FOR PAIN TODAY.
[2022-01-03] MEDS ORDERED: ACET-10509 PO (13:51)
[2022-01-03] MEDS ORDERED: BACI1PAC6 TP (13:51)
[2022-01-03] MEDS ORDERED: AMOX1TAB8 PO (13:51)
--- NOTE | 2022-01-03 14:11 | NUR ---
Patient discharged with v/s stable. Written and verbal after care instructions given and explained. Patient alert, oriented and verbalized understanding of instructions. Ambulatory with steady gait. All questions addressed prior to discharge. ID band removed. Patient advised to follow up with PMD. Rx of BACITRACIN, TYLENOL given. Patient educated on indication of medication including possible reaction and side effects. Opportunity to ask questions provided and answered.
== END 2022-01-03 14:11 | disposition home or self-care (01) ==
LOC: MED 11:34
DX: S61.411A Laceration without foreign body of right hand, initial encounter (principal); E11.9 Type 2 diabetes mellitus without complications; I10 Essential (primary) hypertension; Z79.899 Other long term (current) drug therapy; Z79.2 Long term (current) use of antibiotics; Z79.4 Long term (current) use of insulin; W54.0XXA Bitten by dog, initial encounter; Y93.89 Activity, other specified; Y92.89 Other specified places as the place of occurrence of the external cause; Y99.8 Other external cause status
CPT/HCPCS: 12001; 90471; 90472; 90675; 90715; 99283; J2001

== ENCOUNTER 2022-01-06 08:56 | Emergency (ER) | payer OTHER ==
[~2022-01-06] VITALS: Ht 162.6 cm; Wt 64.9 kg
[~2022-01-06 08:56] MED LIST changes: +ACET-10509 PO; +AMOX1TAB8 PO; +BACI1PAC6 TP
[2022-01-06 09:03] VITALS: BP 175/72
[2022-01-06] MEDS ORDERED: RABIES VACCINE 2.5 IU VIAL IMVAC ONE (09:15)
--- NOTE | 2022-01-06 09:15 | NUR ---
76F PRESENTS TO ED FOR LACERATION RECHECK AND RABIES VACCINE S/P DOG BITE 01/03/22. PT REPORTS BEING SEEN IN ED FOR DOG BITE TUESDAY, INSTRUCTED TO RETURN IN 3 DAYS FOR RABIES VACCINE CONTINUATION. UPON ASSESSMENT, PT DENIES REDNESS, SWELLING, FEVERS CHILLS, OR PAIN TO RIGHT HAND.
[2022-01-06 09:34] VITALS: BP 175/72
--- NOTE | 2022-01-06 09:34 | NUR ---
Patient discharged with v/s stable. Written and verbal after care instructions given and explained. Patient verbalized understanding. Ambulatory with steady gait. All questions addressed prior to discharge. Advised to follow up with PMD.
== END 2022-01-06 09:34 | disposition home or self-care (01) ==
LOC: MED 08:56
DX: S61.411D Laceration without foreign body of right hand, subsequent encounter (principal); E11.9 Type 2 diabetes mellitus without complications; I10 Essential (primary) hypertension; Z79.899 Other long term (current) drug therapy; Z79.2 Long term (current) use of antibiotics; Z79.4 Long term (current) use of insulin; W54.0XXD Bitten by dog, subsequent encounter
CPT/HCPCS: 90471; 90675; 99281

== ENCOUNTER 2022-01-10 09:08 | Emergency (ER) | payer OTHER ==
[~2022-01-10] VITALS: Ht 149.9 cm; Wt 66.3 kg
[2022-01-10 09:11] VITALS: BP 115/71
--- NOTE | 2022-01-10 09:19 | NUR ---
PT AMB TO BED 1.
--- NOTE | 2022-01-10 09:25 | NUR ---
PT RECEIVED, CARE ASSUMED. PT HERE FOR RABIES VACCINE
[2022-01-10] MEDS ORDERED: RABIES VACCINE 2.5 IU VIAL IMVAC ONE (10:00)
[2022-01-10 10:43] VITALS: BP 131/78
== END 2022-01-10 10:43 | disposition home or self-care (01) ==
LOC: MED 09:08
DX: S61.401A Unspecified open wound of right hand, initial encounter (principal); E11.9 Type 2 diabetes mellitus without complications; I10 Essential (primary) hypertension; Z79.899 Other long term (current) drug therapy; Z79.2 Long term (current) use of antibiotics; Z79.4 Long term (current) use of insulin; W54.0XXA Bitten by dog, initial encounter; Y93.89 Activity, other specified; Y92.89 Other specified places as the place of occurrence of the external cause; Y99.8 Other external cause status
CPT/HCPCS: 90471; 90675; 99281